=== PATIENT | female | born 1985 | race Caucasian/White ===

== ENCOUNTER → 2017-03-02 | Outpatient (CLI) | payer OTHER ==
[2017-03-02 13:01] LABS: Basophils % (A) 1 %; CH 30.7; CHCM 33.6; Eosinophils # (A) 0.1 k/uL (0-0.7); Eosinophils % (A) 1 %; HCT 39.8 % (34.0-46.0); HDW 2.23; HGB 13.4 gm/dL (11.4-16.0); Luc # (Auto) 0.12; Luc % (Auto) 2; Lymphocytes # (A) 1.3 k/uL (1.0-4.8); Lymphocytes % (A) 18 %; MCH 30.8 pg (25.0-35.0); MCHC 33.6 g/dL (31.0-37.0); MCV 91.7 fL (80.0-100.0); Monocytes # (A) 0.5 k/uL (0-1.0); Monocytes % (A) 7 %; Neutrophils # (A) 5.2 k/uL (1.3-7.7); Neutrophils % (A) 73 %; RBC 4.34 m/uL (3.80-5.40); WBC 7.2 k/uL (3.8-10.6); WBC (Perox) 7.83
== END | disposition home or self-care (01) ==
LOC: LABWHC1 12:21
PROVIDERS: ATTEND Obstetrics & Gynecology
DX: Z01.818 Encounter for other preprocedural examination (principal)
CPT/HCPCS: 36415; 85025

== ENCOUNTER → 2017-03-02 | Outpatient (CLI) | payer OTHER ==
--- NOTE | 2017-03-02 08:26 | US ---
EXAMINATION TYPE: US pelvic complete DATE OF EXAM: 03/02/2017 COMPARISON: NONE CLINICAL HISTORY: 32-year-old female Pelvic Pain R10.2 IUD Z97.5, N92.0 Menorrhagia. Pt states pelvic pain, check IUD placement TECHNIQUE: Multiple transabdominal sonographic images of the pelvis are obtained. Transvaginal scanni ng was medically necessary to better evaluate the anatomy. FINDINGS: Uterus: Anteverted measuring 10.4 x 4.0 x 5.9 cm. An IUD is present but has migrated and is malposit ioned. It is located along the lower uterine segment directed posteriorly and to the right with perfo ration of the myometrium. The tip of the IUD extends up to or just beyond the serosal surface of the uterus. Endometrial Stripe: 0.6 cm Right Ovary: 4.3 x 2.4 x 2.7 cm with a 1.8 cm hemorrhagic follicle or corpus luteum. Left Ovary: 2.4 x 2.1 x 1.2 cm, within normal limits. No evident adnexal abnormality or cul-de-sac free fluid. Findings called to the physician's office by the blueprinting machine operator. IMPRESSION: 1. IUD migration with myometrial perforation. The IUD is malpositioned along the lower uterine segmen t directed posteriorly and to the right. The tip of the IUD extends up to or just beyond the serosal surface of the uterus. 2. A 1.8 cm hemorrhagic follicle or corpus luteum in the right ovary. 3. No pelvic free fluid.
== END | disposition home or self-care (01) ==
LOC: RADUSWWP 07:40
PROVIDERS: ATTEND Obstetrics & Gynecology
DX: T83.128A Displacement of other urinary devices and implants, initial encounter (principal)
CPT/HCPCS: 36415; 76830; 76856; 85025

== ENCOUNTER 2020-01-15 20:36 | Observation (INO) | payer OTHER ==
[2020-01-15] MEDS ORDERED: SODIUM CHLORIDE 0.9% 500 ML 500 ML IV STA (20:58)
[2020-01-15 21:13] LABS: Basophils % (A) 0 %; Eosinophils # (A) 0.1 k/uL (0-0.7); Eosinophils % (A) 2 %; HGB 12.4 gm/dL (11.4-16.0); Lymphocytes # (A) 1.2 k/uL (1.0-4.8); Lymphocytes % (A) 18 %; MCH 32.4 pg (25.0-35.0); MCHC 33.5 g/dL (31.0-37.0); MCV 96.7 fL (80.0-100.0); Mean Platelet Volume 7.6; Monocytes # (A) 0.5 k/uL (0-1.0); Monocytes % (A) 7 %; Neutrophils % (A) 72 %; Platelet Count 256 k/uL (150-450); RBC 3.82 m/uL (3.80-5.40); WBC 6.9 k/uL (3.8-10.6)
--- NOTE | 2020-01-15 21:25 | XR ---
EXAMINATION TYPE: XR chest 1V DATE OF EXAM: 01/15/2020 COMPARISON: NONE HISTORY: Right upper quadrant pain into chest. TECHNIQUE: Single frontal view of the chest is obtained. FINDINGS: There is no focal air space opacity, pleural effusion, or pneumothorax seen. The cardiac silhouette size is within normal limits. The osseous structures are intact. IMPRESSION: No acute process.
[2020-01-15 21:29] LABS: ALT 12 U/L (4-34); AST 23 U/L (14-36); African American GFR (CKD) >90 (>60 ml/min/1.73 sqM); Albumin 3.9 g/dL (3.5-5.0); Alkaline Phosphatase 48 U/L (38-126); Amylase 40 U/L (30-110); Anion Gap 8 mmol/L; Blood Urea Nitrogen 11 mg/dL (7-17); Calcium 9.2 mg/dL (8.4-10.2); Carbon Dioxide 20 mmol/L (22-30); Chloride 105 mmol/L (98-107); Glucose 171 mg/dL (74-99); Lipase 60 U/L (23-300); Non-African American GFR(CKD) 89 (>60 ml/min/1.73 sqM); Potassium 3.5 mmol/L (3.5-5.1); Sodium 133 mmol/L (137-145); Total Bilirubin 1.5 mg/dL (0.2-1.3); Total Protein 6.6 g/dL (6.3-8.2)
[2020-01-15 21:39] LABS: Prothrombin Time 10.5 sec (9.0-12.0)
[2020-01-15 21:43] LABS: Partial Thromboplastin Time 20.9 sec (22.0-30.0)
--- NOTE | 2020-01-15 22:02 | US ---
EXAMINATION TYPE: US pelvic complete DATE OF EXAM: 01/15/2020 COMPARISON: Pelvic ultrasound March 02, 2017 CLINICAL HISTORY: RLQ pain. PELVIC/ABD pain TECHNIQUE: Transabdominal (TA). Transabdominal sonographic images of the pelvis were acquired. TV attempted, however not able to visualize uterus or ovaries EXAM MEASUREMENTS: Uterus: 10.9 x 4.1 x 3.8 cm Endometrial Stripe: 0.7 cm Left Ovary: 2.6 x 1.9 x 3.1 cm 1. Uterus: Anteverted wnl 2. Endometrium: wnl 4. Left Ovary: wnl, follicles Spectral, color and waveform doppler imaging shows good arterial and venous flow within the left ov conor; within the posterior cul de-sac and extending into right adnexa there is a large, complex collectio n= 13.5 x 6.2 x 13.3 cm ?blood/ unable to visualize right ovaryheterogeneous anteverted uterus. End ometrium 7 mm in thickness. Complex material in the pelvic cul-de-sac with possible vascularity. IMPRESSION: Complex large lesion filling the pelvic cul-de-sac could reflect right ovarian mass or ne oplasm. CT correlation is advised to better evaluate and characterize.
[2020-01-15] MEDS ORDERED: MORPHINE SULFATE 2 MG/ML SYRINGE IVP STA (23:04)
--- NOTE | 2020-01-15 23:10 | CT ---
EXAMINATION TYPE: CT abdomen pelvis w con DATE OF EXAM: 01/15/2020 COMPARISON: None HISTORY: RLQ pain CT DLP: 612.8 mGycm Automated exposure control for dose reduction was used. CONTRAST: Performed with IV Contrast, patient injected with 100 mL of Isovue 300. Lung bases are clear. There is no pleural effusion. Heart size is normal. There is no pericardial eff usion. Liver spleen pancreas appear intact. Bile ducts are not dilated. Gallbladder appears normal. There is abdominal ascites. Stomach has normal size and contour. There is no adrenal mass. Kidneys show satisfactory contrast opacification. There is no hydronephrosi s. Delayed images show normal renal excretion. There is no retroperitoneal adenopathy. Uterus is anteverted. Bladder distends smoothly. There is large pelvic mass displacing the uterus ant eriorly. This extends from the floor the pelvis superiorly to the L4-5 disc. The mass measures 13 x 9 x 8 cm and has mixed attenuation. There is no mesenteric edema. There is no sign of a bowel obstruction. There is no evidence of free a ir. Lumbar spine is intact. Bony pelvis is intact. Hip joints appear normal. I see no bony destructiv e process. Appendix is not identified. IMPRESSION: Large mixed attenuation pelvic mass could BE tumor of ovarian origin. There is also abdominal ascites . Also consider tubo-ovarian abscess or endometriosis. Ruptured appendicitis with pelvic phlegmon is in the differential diagnosis. Follow-up recommended. Ascites fluid has density of 26 which is probab ly not hemorrhagic.
[2020-01-15] MEDS ORDERED: SODIUM CHLORIDE 0.9% 1,000 ML IV ONE (23:24)
[2020-01-15] MEDS ORDERED: MORPHINE SULFATE 4 MG/ML SYRINGE IV PRN (23:37)
[2020-01-15] MEDS ORDERED: ONDANSETRON 4 MG/2 ML VIAL IVP PRN (23:37)
[2020-01-15] MEDS ORDERED: NALOXONE 0.4 MG/ML 1 ML VIAL IV PRN (23:37)
--- NOTE | 2020-01-15 23:48 | ED ---
Abdominal Pain HPI - General Source: patient, EMS Mode of arrival: EMS <Ijeoma Thomas - Last Filed: 01/15/20 23:48> <Kaleigh Lopez - Last Filed: 01/15/20 23:55> - General Chief Complaint: Abdominal Pain Stated Complaint: Abdominal Pain Time Seen by Provider: 01/15/20 20:41 - History of Present Illness Initial Comments: 34-year-old male presenting for syncopal episode abdominal pain. Patient states that she has had right upper quadrant abdominal pain today after having sex at noon she denies any vaginal bleeding discharge. She states an hour later she got up to use the restroom and passed out, the episode was witnessed by her who states that the patient lowered herself to the ground and did nto appear to hit her head. Pt denies headache, nasuea, visual changes. She denies vomiting she denies . Patient states she has had some similar pain in the right lower quadrant after sex the past. Patient states that she does have family history of ovarian cancer. Patient denies any chest pain shortness of breath but states that she feels that the pain is climbing up towards her right shoulder. Patient states she has had a previous appendectomy she denies any fevers. Patient denies knonw history of ovarian cysts. Patient on arrival no acute distress. (Ijeoma Thomas) - Related Data Home Medications Medication Instructions Recorded Confirmed Fish Oil/Dha/Epa [Fish Oil 1,200 1 each PO DAILY 12/03/15 03/05/17 mg Fish Oil] Multivitamins, Thera [Multivitamin 1 tab PO DAILY 03/03/17 03/05/17 (formulary)] Previous Rx's Medication Instructions Recorded Ibuprofen [Motrin] 600 mg PO Q6HR PRN #30 tab 03/05/17 Allergies Allergy/AdvReac Type Severity Reaction Status Date / Time No Known Allergies Allergy Verified 01/15/20 20:46 Review of Systems ROS Other: All systems not noted in ROS Statement are negative. <Ijeoma Thomas - Last Filed: 01/15/20 23:48> ROS Other: All systems not noted in ROS Statement are negative. <Kaleigh Lopez - Last Filed: 01/15/20 23:55> ROS Statement: Those systems with pertinent positive or pertinent negative responses have been documented in the HPI. Past Medical History Past Medical History: No Reported History Additional Past Medical History / Comment(s): STATES HAVING IUD REMOVED - HAVING CONTINUOUS VAGINAL BLEEDING. History of Any Multi-Drug Resistant Organisms: None Reported Past Surgical History: Appendectomy Past Anesthesia/Blood Transfusion Reactions: No Reported Reaction, Motion Sickness Past Psychological History: No Psychological Hx Reported Smoking Status: Never smoker Past Alcohol Use History: Occasional Past Drug Use History: None Reported - Past Family History Mother Family Medical History: Hypertension <MarthaIjeoma Ch - Last Filed: 01/15/20 23:48> General Exam <Ijeoma Thomas - Last Filed: 01/15/20 23:48> - General Exam Comments Initial Comments: General: The patient is awake and alert, in no distress Eye: Pupils are equal, round and reactive to light, extra-ocular movements are intact. No nystagmus. There is normal conjunctiva bilaterally. No signs of icterus. Ears, nose, mouth and throat: There are moist mucous membranes and no oral lesions. Neck: The neck is supple, there is no tenderness or JVD. Cardiovascular: There is a regular rate and rhythm. No murmur, rub or gallop is appreciated. Respiratory: Lungs are clear to auscultation, respirations are non-labored, breath sounds are equal. No wheezes, stridor, rales, or rhonchi. Gastrointestinal: Soft, non-distended, RLQ pain without masses or organomegaly noted. There is no rebound or guarding present. Musculoskeletal: Normal ROM, no tenderness. Strength 5/5. Sensation intact. radial pulses equal bilaterally 2+. Neurological: A&O x 3. CN II-XII intact, There are no obvious motor or sensory deficits. Coordination appears grossly intact. Speech is normal. Skin: Skin is warm and dry and no rashes or lesions are noted. Psychiatric: Cooperative, appropriate mood & affect, normal judgment. (Ijeoma Thomas) Course Vital Signs 01/15/20 01/15/20 01/15/20 20:41 22:00 22:40 Temperature 98.2 F Pulse Rate 98 96 94 Respiratory 18 14 16 Rate Blood Pressure 106/80 105/76 105/69 O2 Sat by Pulse 100 100 100 Oximetry Medical Decision Making - Lab Data Result diagrams: 01/15/20 21:03 01/15/20 21:03 <Ijeoma Thomas - Last Filed: 01/15/20 23:48> - Lab Data Result diagrams: 01/15/20 21:03 01/15/20 21:03 <Kaleigh Lopez - Last Filed: 01/15/20 23:55> - Medical Decision Making US concerning for mass. Pt has a syncopal episode in xr. no acute ekg changes. Hgb stable. Mass on CT, very large, concerning for ovarian carcinoma. pt in monogamous relationship, no concern for STI. No fevers. Patietn has no leukocytosis. + family history of ovarian cancer. Patient pain uncontrolled in the ER will admit for pain control, telemetry. Patient agreeable to admission. Dr Olivas agreeable to admission for pain control. Dr Lopez agreeable to care plan. (Ijeoma Thomas) I personally saw and evaluated the a jacobs, patient reports feeling lightheaded anytime she attempts to stand doesn't feel she has the strength to go home. Patient also very upset over diagnosis. Patient care was discussed with her special education professor Dr. Olivas who agrees with plan for observation for pain management and to expedite planning. (Kaleigh Lopez) - Lab Data Lab Results 01/15/20 01/15/20 01/15/20 Range/Units 21:03 21:03 21:03 WBC 6.9 (3.8-10.6) k/uL RBC 3.82 (3.80-5.40) m/uL Hgb 12.4 (11.4-16.0) gm/dL Hct 37.0 (34.0-46.0) % MCV 96.7 (80.0-100.0) fL MCH 32.4 (25.0-35.0) pg MCHC 33.5 (31.0-37.0) g/dL RDW 12.0 (11.5-15.5) % Plt Count 256 (150-450) k/uL Neutrophils % 72 % Lymphocytes % 18 % Monocytes % 7 % Eosinophils % 2 % Basophils % 0 % Neutrophils # 5.0 (1.3-7.7) k/uL Lymphocytes # 1.2 (1.0-4.8) k/uL Monocytes # 0.5 (0-1.0) k/uL Eosinophils # 0.1 (0-0.7) k/uL Basophils # 0.0 (0-0.2) k/uL PT 10.5 (9.0-12.0) sec INR 1.0 (<1.2) APTT 20.9 L (22.0-30.0) sec Sodium 133 L (137-145) mmol/L Potassium 3.5 (3.5-5.1) mmol/L Chloride 105 (98-107) mmol/L Carbon Dioxide 20 L (22-30) mmol/L Anion Gap 8 mmol/L BUN 11 (7-17) mg/dL Creatinine 0.87 (0.52-1.04) mg/dL Est GFR (CKD-EPI)AfAm >90 (>60 ml/min/1.73 sqM) Est GFR (CKD-EPI)NonAf 89 (>60 ml/min/1.73 sqM) Glucose 171 H (74-99) mg/dL Calcium 9.2 (8.4-10.2) mg/dL Total Bilirubin 1.5 H (0.2-1.3) mg/dL AST 23 (14-36) U/L ALT 12 (4-34) U/L Alkaline Phosphatase 48 (38-126) U/L Troponin I (0.000-0.034) ng/mL Total Protein 6.6 (6.3-8.2) g/dL Albumin 3.9 (3.5-5.0) g/dL Amylase 40 (30-110) U/L Lipase 60 (23-300) U/L HCG, Qual 01/15/20 01/15/20 Range/Units 21:03 21:03 WBC (3.8-10.6) k/uL RBC (3.80-5.40) m/uL Hgb (11.4-16.0) gm/dL Hct (34.0-46.0) % MCV (80.0-100.0) fL MCH (25.0-35.0) pg MCHC (31.0-37.0) g/dL RDW (11.5-15.5) % Plt Count (150-450) k/uL Neutrophils % % Lymphocytes % % Monocytes % % Eosinophils % % Basophils % % Neutrophils # (1.3-7.7) k/uL Lymphocytes # (1.0-4.8) k/uL Monocytes # (0-1.0) k/uL Eosinophils # (0-0.7) k/uL Basophils # (0-0.2) k/uL PT (9.0-12.0) sec INR (<1.2) APTT (22.0-30.0) sec Sodium (137-145) mmol/L Potassium (3.5-5.1) mmol/L Chloride (98-107) mmol/L Carbon Dioxide (22-30) mmol/L Anion Gap mmol/L BUN (7-17) mg/dL Creatinine (0.52-1.04) mg/dL Est GFR (CKD-EPI)AfAm (>60 ml/min/1.73 sqM) Est GFR (CKD-EPI)NonAf (>60 ml/min/1.73 sqM) Glucose (74-99) mg/dL Calcium (8.4-10.2) mg/dL Total Bilirubin (0.2-1.3) mg/dL AST (14-36) U/L ALT (4-34) U/L Alkaline Phosphatase (38-126) U/L Troponin I <0.012 (0.000-0.034) ng/mL Total Protein (6.3-8.2) g/dL Albumin (3.5-5.0) g/dL Amylase (30-110) U/L Lipase (23-300) U/L HCG, Qual Not Detected Disposition Is patient prescribed a controlled substance at d/c from ED?: No Time of Disposition: 23:47 Decision to Admit Reason: Admit from EC Decision Date: 01/15/20 Decision Time: 23:47 <Ijeoma Thomas L - Last Filed: 01/15/20 23:48> <Kaleigh Lopez P - Last Filed: 01/15/20 23:55> Clinical Impression: Ovarian mass, Right lower quadrant pain, Syncope Disposition: ADMITTED IP TO THIS [facility] Condition: Stable Referrals: None,Stated [Primary Care Provider] - 1-2 days
[2020-01-16] MEDS: 0.9% NACL WITH KCL 20 MEQ/L 1,000 ML IV SCH ×2 (01:10→13:38)
[2020-01-16] MEDS: HYDROmorphone 0.5 MG/0.5 ML SYRINGE IVP PRN ×5 (01:19→23:11)
[2020-01-16 07:36] LABS: Appearance,Urine Clear (Clear); Bilirubin,Urine Negative (Negative); Blood,Urine Negative (Negative); Color,Urine Yellow; Glucose,Urine (UA) Negative (Negative); Ketones,Urine 2+ (Negative); Leukocyte Esterase,Urine Negative (Negative); Nitrite,Urine Negative (Negative); PH, Urine 6.5 (5.0-8.0); Protein,Urine Trace (Negative); Urobilinogen,Urine <2.0 mg/dL (<2.0)
[2020-01-16 07:38] LABS: Specific Gravity,Urine >1.050 (1.001-1.035)
[2020-01-16 11:53] LABS: Cancer Antigen 19-9 1.3 U/mL (0.0-34.9)
[2020-01-16 12:01] LABS: Carcinoembryonic Antigen <0.5 ng/mL (0.0-4.9)
--- NOTE | 2020-01-16 12:30 | P.HPOB ---
History of Present Illness H&P Date: 01/16/20 Chief Complaint: Ovarian mass Kim is a very pleasant 35-year-old female well known to me from previous office visits. She presents last night for syncopal/near-syncopal episode. She relates that yesterday afternoon at around noon she was having sex with her and following sex she got up to go in the shower and she had a severe right lower quadrant pain symptoms and caused her to basically pass out in the shower. She waited at home until approximately 8 PM when the pain did not get any better and she began feeling tired and weak she was brought to the emergency room. In the emergency room a CAT scan and ultrasound were done showing a globular of bleed within the mass. It is difficult to differentiate within the mass ovary versus mass effect. There is also ascites but again they do not believe is blood that they believe his ascites fluid. In seeing her this morning, her pain is still relatively significant and she is receiving IV Dilaudid for pain. When I saw her she was laying in bed and relates that she cannot really sit up or stand up due to how significant the pain is and that she has not been able to understand up for a number of hours. She does have a history of IUD perforation and removal surgically. She has history of prior appendectomy. Her family history is significant for ovarian cancer including her maternal grandmother. Based on the unusual findings and significant size of this mass and history of ovarian cancer within the family, her trauma grandmother actually at approximately 25 or 26 years of age from ovarian cancer, we are planning to transfer [facility] for surgical intervention. I had a lengthy discussion with the patient and her mother regarding plan and options. I did speak with Dr. Arlin cordova about the transfer. We discussed the possibility if this is ovarian cancer, her CA-125 level was normal which at least reduces that risk somewhat. The CT also showed no lymphadenopathy that they could tell there was also no omental caking or areas on the chest that I represent metastases. Certainly other possible diagnoses to include borderline tumors, endometriosis, infection, or even potentially ruptured hemorrhagic cyst but this based on what radiology is telling me is much less likely. On physical exam her vital signs currently are stable with a blood pressure 100/60 and a pulse of 93. Her heart is regular, lungs are clear, extremities without pain. Abdomen is soft with significant tenderness in the right lower quadrant and mild rebound but no other peritoneal signs. She declined pelvic exam at this time with plans for transfer Assessment suspected right ovarian mass Plan transfer to [facility] for surgical evaluation Past Medical History Past Medical History: No Reported History Additional Past Medical History / Comment(s): Gluten free diet. History of Any Multi-Drug Resistant Organisms: None Reported Past Surgical History: Appendectomy Additional Past Surgical History / Comment(s): IUD removed, bilateral lasik eye surgery Past Anesthesia/Blood Transfusion Reactions: No Reported Reaction, Motion Sickness Smoking Status: Never smoker - Past Family History Mother Family Medical History: Hypertension Father Family Medical History: No Reported History Medications and Allergies Home Medications Medication Instructions Recorded Confirmed Type No Known Home Medications 01/16/20 01/16/20 History Allergies Allergy/AdvReac Type Severity Reaction Status Date / Time gluten Allergy Nausea & Verified 01/16/20 07:03 Vomiting & Diarrhea Exam Osteopathic Statement: *. No significant issues noted on an osteopathic structural exam other than those noted in the History and Physical/Consult. Vital Signs Temp Pulse Pulse Resp BP BP Pulse Ox 01/16/20 12:00 98.9 F 83 14 100/63 99 01/16/20 11:16 98.1 F 82 18 105/70 100 01/16/20 06:56 98.4 F 88 16 105/62 98 01/16/20 05:10 98.6 F 90 16 100/61 98 01/16/20 01:00 89 16 99/69 98 01/16/20 00:00 92 16 108/71 100 01/15/20 23:00 87 16 106/70 100 01/15/20 22:40 94 16 105/69 100 01/15/20 22:00 96 14 105/76 100 01/15/20 20:41 98.2 F 98 18 106/80 100 Intake and Output 01/15/20 01/16/20 01/16/20 22:59 06:59 14:59 Output Total 391 Balance -391 Output: Post Void Residual 391 Other: Weight 52.163 kg 52.163 kg Results Result Diagrams: 01/15/20 21:03 01/15/20 21:03 Abnormal Lab Results - Last 24 Hours (Table) 01/15/20 01/15/20 01/16/20 Range/Units 21:03 21:03 07:04 APTT 20.9 L (22.0-30.0) sec Sodium 133 L (137-145) mmol/L Carbon Dioxide 20 L (22-30) mmol/L Glucose 171 H (74-99) mg/dL Total Bilirubin 1.5 H (0.2-1.3) mg/dL Ur Specific [place] >1.050 H (1.001-1.035) Urine Protein Trace H (Negative) Urine Ketones 2+ H (Negative)
[2020-01-16 12:54] LABS: Basophils % (A) 0 %; Eosinophils % (A) 1 %; HCT 26.9 % (34.0-46.0); Lymphocytes # (A) 0.9 k/uL (1.0-4.8); Lymphocytes % (A) 16 %; MCH 32.8 pg (25.0-35.0); MCHC 33.2 g/dL (31.0-37.0); Mean Platelet Volume 7.8; Monocytes # (A) 0.4 k/uL (0-1.0); Monocytes % (A) 7 %; Neutrophils # (A) 4.2 k/uL (1.3-7.7); Neutrophils % (A) 76 %; Platelet Count 197 k/uL (150-450); RBC 2.72 m/uL (3.80-5.40); RDW 12.4 % (11.5-15.5); WBC 5.5 k/uL (3.8-10.6)
[2020-01-16 13:05] LABS: HGB 8.9 gm/dL (11.4-16.0)
[2020-01-17] MEDS: 0.9% NACL WITH KCL 20 MEQ/L 1,000 ML IV SCH (02:46)
[2020-01-17 02:49] VITALS: PULSE 85
[2020-01-17] MEDS: HYDROmorphone 0.5 MG/0.5 ML SYRINGE IVP PRN ×2 (06:05→09:28)
[2020-01-17 07:57] VITALS: BP 89/55; RESP 14; TEMP 97.6
[2020-01-17 08:19] LABS: Basophils % (A) 0 %; Eosinophils # (A) 0.1 k/uL (0-0.7); Eosinophils % (A) 2 %; HCT 23.9 % (34.0-46.0); Lymphocytes # (A) 0.9 k/uL (1.0-4.8); Lymphocytes % (A) 22 %; MCH 33.2 pg (25.0-35.0); MCHC 33.3 g/dL (31.0-37.0); MCV 99.5 fL (80.0-100.0); Mean Platelet Volume 7.7; Monocytes # (A) 0.3 k/uL (0-1.0); Monocytes % (A) 7 %; Neutrophils # (A) 2.8 k/uL (1.3-7.7); Neutrophils % (A) 67 %; Platelet Count 188 k/uL (150-450); RDW 12.1 % (11.5-15.5); WBC 4.2 k/uL (3.8-10.6)
== END 2020-01-17 09:45 | disposition left against medical advice (07) ==
LOC: EC 20:36 → 1SOBS 23:59
PROVIDERS: ADMIT Obstetrics & Gynecology; ATTEND Obstetrics & Gynecology
DX: R10.31 Right lower quadrant pain (principal); R18.8 Other ascites; R55 Syncope and collapse; N83.9 Noninflammatory disorder of ovary, fallopian tube and broad ligament, unspecified; Z80.41 Family history of malignant neoplasm of ovary; Z90.49 Acquired absence of other specified parts of digestive tract; Z82.49 Family history of ischemic heart disease and other diseases of the circulatory system
CPT/HCPCS: 96365; 96366 ×2; 96376 ×3; 96361; 96375 ×2; 99285; 51798; 36415; 93005; 80053; 86304; 82378; 82150; 83690; 84484; 85025 ×3; 85610; 85730; 81003; 84703; 83520; 86301; 71045; 93976; 76856; 74177; G0378 ×2; J2270; J1170 ×2; Q9967; 86336

== ENCOUNTER 2021-05-06 19:11 | Emergency (ER) | payer OTHER ==
[2021-05-06 19:50] VITALS: BP 114/79; PULSE 94; RESP 20; TEMP 97.4
[2021-05-06 20:25] LABS: Appearance,Urine Cloudy (Clear); Bacteria,Urine Occasional /hpf; Bilirubin,Urine Negative (Negative); Blood,Urine Moderate (Negative); Color,Urine Yellow; Glucose,Urine (UA) Negative (Negative); Ketones,Urine Negative (Negative); Leukocyte Esterase,Urine Negative (Negative); Mucus,Urine Moderate /hpf; Nitrite,Urine Negative (Negative); Protein,Urine Trace (Negative); RBC,Urine 3 /hpf (0-5); Specific Gravity,Urine 1.023 (1.001-1.035); Squamous Epithelial Cell,Urine 5 /hpf (0-4); Urobilinogen,Urine <2.0 mg/dL (<2.0); WBC,Urine 1 /hpf (0-5)
[2021-05-06] MEDS ORDERED: SODIUM CHLORIDE 0.9% 1,000 ML IV STA (20:59)
[2021-05-06] MEDS ORDERED: KETOROLAC 15 MG/ML 1 ML VIAL IVP STA (20:59)
--- NOTE | 2021-05-06 21:03 | ED ---
General Adult HPI - General Chief complaint: Abdominal Pain Stated complaint: abd pain Time Seen by Provider: 05/06/21 20:55 Source: patient, RN notes reviewed, old records reviewed Mode of arrival: ambulatory Limitations: no limitations - History of Present Illness Initial comments: Well-appearing 36-year-old female, alert and oriented 4, presents to emergency room with complaints of diffuse abdominal pain. Patient states that she had intercourse with her Thursday night and developed right lower quadrant pain. She states that she woke up Thursday and she has diffuse abdominal pain and distention. She states that this happened before when she had a uterine mass that ruptured after sexual intercourse and this feels similar. She denies any fevers, no nausea vomiting or diarrhea. She is pain as constant 7 out of 10. She does have a history of appendectomy. -: days(s) (4) Location: abdomen Severity scale (1-10): 7 Quality: constant Consistency: constant Improves with: none Worsens with: movement, other (palpation) Associated Symptoms: denies other symptoms Treatments Prior to Arrival: none - Related Data Home Medications Medication Instructions Recorded Confirmed Ascorbic Acid/Collagen Hydr 1 cap PO DAILY 05/06/21 05/06/21 [Collagen Plus Vit C Capsule] Cholecalciferol [Vitamin D3 (25 25 mcg PO DAILY 05/06/21 05/06/21 Mcg = 1000 Iu)] L.acidoph,Paracasei, B.lactis 1 cap PO DAILY 05/06/21 05/06/21 [Probiotic] Multivitamins, Thera [Multivitamin 1 tab PO DAILY 05/06/21 05/06/21 (formulary)] [place]-3 Fatty Acids/Fish Oil [Fish 1 cap PO DAILY 05/06/21 05/06/21 Oil 1,000 mg Softgel] Allergies Allergy/AdvReac Type Severity Reaction Status Date / Time gluten Allergy Nausea & Verified 05/06/21 21:38 Vomiting & Diarrhea Review of Systems ROS Statement: Those systems with pertinent positive or pertinent negative responses have been documented in the HPI. ROS Other: All systems not noted in ROS Statement are negative. Past Medical History Past Medical History: No Reported History Additional Past Medical History / Comment(s): Gluten free diet. History of Any Multi-Drug Resistant Organisms: None Reported Past Surgical History: Appendectomy Additional Past Surgical History / Comment(s): IUD removed, bilateral lasik eye surgery, abdominal mass Past Anesthesia/Blood Transfusion Reactions: No Reported Reaction, Motion Sickness Past Psychological History: No Psychological Hx Reported Smoking Status: Never smoker Past Alcohol Use History: Occasional Past Drug Use History: None Reported - Past Family History Mother Family Medical History: Hypertension Father Family Medical History: No Reported History General Exam Limitations: no limitations General appearance: alert, in no apparent distress Head exam: Present: atraumatic, normocephalic, normal inspection Eye exam: Present: normal appearance Neck exam: Present: normal inspection. Absent: tenderness, meningismus Respiratory exam: Present: normal lung sounds bilaterally. Absent: accessory muscle use, decreased breath sounds Cardiovascular Exam: Present: regular rate, normal rhythm, normal heart sounds GI/Abdominal exam: Present: soft, distended, tenderness ( diffusely tender). Absent: rigid, mass Extremities exam: Present: normal inspection, full ROM, normal capillary refill. Absent: tenderness, pedal edema, joint swelling, calf tenderness Back exam: Present: normal inspection, full ROM. Absent: tenderness, CVA tenderness (R), CVA tenderness (L), rash noted Neurological exam: Present: alert, oriented X3 Psychiatric exam: Present: normal affect, normal mood Skin exam: Present: warm, dry, intact, normal color. Absent: cyanosis, diaphoretic, petechiae, pallor Course Vital Signs 05/06/21 19:46 Temperature 97.4 F L Pulse Rate 94 Respiratory 20 Rate Blood Pressure 114/79 O2 Sat by Pulse 100 Oximetry Medical Decision Making - Medical Decision Making 36-year-old female presents to the emergency room with right lower quadrant pain since Thursday that is progressively become more diffuse. She has a history of appendectomy and excision of a benign uterine mass. CT abdomen shows a left ovarian cyst with an elongated hyperattenuation in the pelvis could be acute hemorrhage. Hemoglobin and hematocrit are stable. There is no evidence of leukocytosis. Urinalysis shows moderate amount of blood, no evidence of urinary tract infection or . Patient denies any vaginal bleeding. This is likely a ruptured hemorrhagic ovarian cyst causing her pain. Vital signs are stable. She'll be referred to follow up with her TANK WORKER next week and return to the emergency room with any new or concerning symptoms including increased pain. Tylenol and/or Motrin as needed for pain and given take home dose of Tylenol #3's at discharge. Patient is agreeable to this plan of care. Case was discussed with Dr. Lopez. - Lab Data Result diagrams: 05/06/21 21:28 05/06/21 21:28 Lab Results 05/06/21 05/06/21 05/06/21 Range/Units 19:55 19:55 21:28 WBC 4.5 (3.8-10.6) k/uL RBC 3.06 L (3.80-5.40) m/uL Hgb 10.4 L (11.4-16.0) gm/dL Hct 29.3 L (34.0-46.0) % MCV 95.8 (80.0-100.0) fL MCH 33.8 (25.0-35.0) pg MCHC 35.3 (31.0-37.0) g/dL RDW 12.1 (11.5-15.5) % Plt Count 237 (150-450) k/uL MPV 8.3 Neutrophils % 63 % Lymphocytes % 24 % Monocytes % 8 % Eosinophils % 4 % Basophils % 1 % Neutrophils # 2.8 (1.3-7.7) k/uL Lymphocytes # 1.1 (1.0-4.8) k/uL Monocytes # 0.3 (0-1.0) k/uL Eosinophils # 0.2 (0-0.7) k/uL Basophils # 0.0 (0-0.2) k/uL PT (9.0-12.0) sec INR (<1.2) APTT (22.0-30.0) sec Sodium (137-145) mmol/L Potassium (3.5-5.1) mmol/L Chloride (98-107) mmol/L Carbon Dioxide (22-30) mmol/L Anion Gap mmol/L BUN (7-17) mg/dL Creatinine (0.52-1.04) mg/dL Est GFR (CKD-EPI)AfAm (>60 ml/min/1.73 sqM) Est GFR (CKD-EPI)NonAf (>60 ml/min/1.73 sqM) Glucose (74-99) mg/dL Plasma Lactic Acid Duy (0.7-2.0) mmol/L Calcium (8.4-10.2) mg/dL Total Bilirubin (0.2-1.3) mg/dL AST (14-36) U/L ALT (4-34) U/L Alkaline Phosphatase (38-126) U/L Total Protein (6.3-8.2) g/dL Albumin (3.5-5.0) g/dL Amylase (30-110) U/L Lipase (23-300) U/L Urine Color Yellow Urine Appearance Cloudy H (Clear) Urine pH 6.0 (5.0-8.0) Ur Specific [place] 1.023 (1.001-1.035) Urine Protein Trace H (Negative) Urine Glucose (UA) Negative (Negative) Urine Ketones Negative (Negative) Urine Blood Moderate H (Negative) Urine Nitrite Negative (Negative) Urine Bilirubin Negative (Negative) Urine Urobilinogen <2.0 (<2.0) mg/dL Ur Leukocyte Esterase Negative (Negative) Urine RBC 3 (0-5) /hpf Urine WBC 1 (0-5) /hpf Ur Squamous Epith Cells 5 H (0-4) /hpf Urine Bacteria Occasional H (None) /hpf Urine Mucus Moderate H (None) /hpf Urine HCG, Qual Not Detected (Not Detectd) 05/06/21 05/06/21 05/06/21 Range/Units 21:28 21:28 21:28 WBC (3.8-10.6) k/uL RBC (3.80-5.40) m/uL Hgb (11.4-16.0) gm/dL Hct (34.0-46.0) % MCV (80.0-100.0) fL MCH (25.0-35.0) pg MCHC (31.0-37.0) g/dL RDW (11.5-15.5) % Plt Count (150-450) k/uL MPV Neutrophils % % Lymphocytes % % Monocytes % % Eosinophils % % Basophils % % Neutrophils # (1.3-7.7) k/uL Lymphocytes # (1.0-4.8) k/uL Monocytes # (0-1.0) k/uL Eosinophils # (0-0.7) k/uL Basophils # (0-0.2) k/uL PT 10.1 (9.0-12.0) sec INR 0.9 (<1.2) APTT 23.7 (22.0-30.0) sec Sodium 136 L (137-145) mmol/L Potassium 3.9 (3.5-5.1) mmol/L Chloride 109 H (98-107) mmol/L Carbon Dioxide 23 (22-30) mmol/L Anion Gap 4 mmol/L BUN 8 (7-17) mg/dL Creatinine 0.62 (0.52-1.04) mg/dL Est GFR (CKD-EPI)AfAm >90 (>60 ml/min/1.73 sqM) Est GFR (CKD-EPI)NonAf >90 (>60 ml/min/1.73 sqM) Glucose 97 (74-99) mg/dL Plasma Lactic Acid Duy 0.8 (0.7-2.0) mmol/L Calcium 8.8 (8.4-10.2) mg/dL Total Bilirubin 0.6 (0.2-1.3) mg/dL AST 18 (14-36) U/L ALT 9 (4-34) U/L Alkaline Phosphatase 45 (38-126) U/L Total Protein 6.4 (6.3-8.2) g/dL Albumin 3.6 (3.5-5.0) g/dL Amylase 46 (30-110) U/L Lipase 93 (23-300) U/L Urine Color Urine Appearance (Clear) Urine pH (5.0-8.0) Ur Specific [place] (1.001-1.035) Urine Protein (Negative) Urine Glucose (UA) (Negative) Urine Ketones (Negative) Urine Blood (Negative) Urine Nitrite (Negative) Urine Bilirubin (Negative) Urine Urobilinogen (<2.0) mg/dL Ur Leukocyte Esterase (Negative) Urine RBC (0-5) /hpf Urine WBC (0-5) /hpf Ur Squamous Epith Cells (0-4) /hpf Urine Bacteria (None) /hpf Urine Mucus (None) /hpf Urine HCG, Qual (Not Detectd) Disposition Clinical Impression: Ruptured cyst of left ovary Disposition: HOME SELF-CARE Condition: Good Instructions (If sedation given, give patient instructions): Ruptured Ovarian Cyst (ED) Additional Instructions: Return to the emergency room with any new or concerning symptoms including increased pain, fevers or dizziness. Follow-up with your TANK WORKER this week for reevaluation. Tylenol and or Motrin as needed for pain. Is patient prescribed a controlled substance at d/c from ED?: No Referrals: None,Stated [Primary Care Provider] - 1-2 days Time of Disposition: 22:41
[2021-05-06 21:48] LABS: Basophils % (A) 1 %; Eosinophils # (A) 0.2 k/uL (0-0.7); Eosinophils % (A) 4 %; HCT 29.3 % (34.0-46.0); HGB 10.4 gm/dL (11.4-16.0); Lymphocytes # (A) 1.1 k/uL (1.0-4.8); Lymphocytes % (A) 24 %; MCH 33.8 pg (25.0-35.0); MCHC 35.3 g/dL (31.0-37.0); MCV 95.8 fL (80.0-100.0); Mean Platelet Volume 8.3; Monocytes # (A) 0.3 k/uL (0-1.0); Monocytes % (A) 8 %; Neutrophils # (A) 2.8 k/uL (1.3-7.7); Neutrophils % (A) 63 %; Platelet Count 237 k/uL (150-450); RBC 3.06 m/uL (3.80-5.40); RDW 12.1 % (11.5-15.5); WBC 4.5 k/uL (3.8-10.6)
[2021-05-06 21:57] LABS: ALT 9 U/L (4-34); AST 18 U/L (14-36); African American GFR (CKD) >90 (>60 ml/min/1.73 sqM); Albumin 3.6 g/dL (3.5-5.0); Alkaline Phosphatase 45 U/L (38-126); Amylase 46 U/L (30-110); Anion Gap 4 mmol/L; Blood Urea Nitrogen 8 mg/dL (7-17); Calcium 8.8 mg/dL (8.4-10.2); Carbon Dioxide 23 mmol/L (22-30); Chloride 109 mmol/L (98-107); Glucose 97 mg/dL (74-99); Lipase 93 U/L (23-300); Non-African American GFR(CKD) >90 (>60 ml/min/1.73 sqM); Potassium 3.9 mmol/L (3.5-5.1); Sodium 136 mmol/L (137-145); Total Bilirubin 0.6 mg/dL (0.2-1.3); Total Protein 6.4 g/dL (6.3-8.2)
[2021-05-06 22:01] LABS: INR 0.9 (<1.2); Partial Thromboplastin Time 23.7 sec (22.0-30.0); Prothrombin Time 10.1 sec (9.0-12.0)
--- NOTE | 2021-05-06 22:27 | CT ---
EXAMINATION TYPE: CT abdomen pelvis w con DATE OF EXAM: 05/06/2021 COMPARISON: 01/15/2020 HISTORY: Abdominal pain. Hx appy and uterine cyst. CT DLP: 610.3 mGycm Automated exposure control for dose reduction was used. CONTRAST: Performed with IV Contrast, patient injected with 100 mL of Isovue 300. The lung bases are clear of consolidation. There is mild subsegmental atelectasis at the lung bases. Heart size is normal. There is no pleural effusion. There is no pericardial effusion. Liver spleen pancreas and gallbladder appear intact. The bile ducts are not dilated. The stomach is intact. There is no adrenal mass. Kidneys show satisfactory contrast opacification. There is no hydronephrosi s. There are clips from appendectomy. The bladder distends smoothly. There is no inguinal hernia. The re is a 4 cm thick wall cyst on the left ovary. Uterus is anteverted. There is elongated area of high attenuation in the cul-de-sac that measures 11 x 3 cm and could be acute hemorrhage. There is no evidence of a bowel obstruction. There is no free air. Lumbar vertebra have normal alignm ent. There is no compression fracture. Bony pelvis appears intact. The hip joints are intact. IMPRESSION: Left ovarian cyst. Elongated high attenuation in the pelvis could be acute hemorrhage. There is clear ing of the large amount of fluid in the paracolic gutters compared to old exam. There is improvement in the abnormal density in the cul-de-sac compared to old exam.
[2021-05-06] MEDS ORDERED: MORPHINE SULFATE 4 MG/ML SYRINGE IVP STA (22:38)
[2021-05-06] MEDS ORDERED: ACET/COD 300 MG/30 MG STARTER PACK 6 TAB BTL PO STA (22:41)
== END 2021-05-06 22:57 | disposition home or self-care (01) ==
LOC: EC 19:11
DX: N83.202 Unspecified ovarian cyst, left side (principal); Z91.018 Allergy to other foods
CPT/HCPCS: 36415; 80053; 82150; 83605; 83690; 85025; 85610; 85730; 81001; 81025; 74177; 99284; 96374; 96375; 96361; J2270; J1885; Q9967

== ENCOUNTER 2023-07-22 02:52 | Emergency (ER) | payer OTHER ==
[2023-07-22 03:12] VITALS: TEMP 98
--- NOTE | 2023-07-22 03:28 | ED ---
Recheck HPI - General Chief Complaint: Recheck/Abnormal Lab/Rx Stated Complaint: left side pain ALEX Time Seen by Provider: 07/22/23 03:13 Source: patient, RN notes reviewed, old records reviewed Mode of arrival: ambulatory Limitations: no limitations - History of Present Illness Initial Comments: This is a 38-year-old female who presents today for evaluation regards to left- sided chest wall pain left-sided anterior chest pain rib pain with history of rib fracture and lung collapse. Patient's pain is severe here in the emergency department patient states went to bed last night without any symptoms and woke up today with severe symptoms MD Complaint: other (Sided chest wall pain) -: hour(s) Returns Today for: persistent/worsening pain related to initial visit Symptoms Since Prior Visit: no new symptoms Context: planned re-check Associated Symptoms: none - Related Data Home Medications Medication Instructions Recorded Confirmed Ascorbic Acid/Collagen Hydr 1 cap PO DAILY 05/06/21 05/06/21 [Collagen Plus Vit C Capsule] Cholecalciferol [Vitamin D3 (25 25 mcg PO DAILY 05/06/21 05/06/21 Mcg = 1000 Iu)] L.acidoph,Paracasei, B.lactis 1 cap PO DAILY 05/06/21 05/06/21 [Probiotic] Multivitamins, Thera [Multivitamin 1 tab PO DAILY 05/06/21 05/06/21 (formulary)] [place]-3 Fatty Acids/Fish Oil [Fish 1 cap PO DAILY 05/06/21 05/06/21 Oil 1,000 mg Softgel] Allergies Allergy/AdvReac Type Severity Reaction Status Date / Time gluten Allergy Nausea & Verified 07/22/23 03:04 Vomiting & Diarrhea Review of Systems ROS Statement: Those systems with pertinent positive or pertinent negative responses have been documented in the HPI. ROS Other: All systems not noted in ROS Statement are negative. Past Medical History Past Medical History: No Reported History Additional Past Medical History / Comment(s): Gluten free diet. History of Any Multi-Drug Resistant Organisms: None Reported Past Surgical History: Appendectomy Additional Past Surgical History / Comment(s): IUD removed, bilateral lasik eye surgery, abdominal mass Past Anesthesia/Blood Transfusion Reactions: No Reported Reaction, Motion Sickness Past Psychological History: No Psychological Hx Reported Smoking Status: Current every day smoker Past Alcohol Use History: Occasional Past Drug Use History: None Reported - Past Family History Mother Family Medical History: Hypertension Father Family Medical History: No Reported History General Exam Limitations: no limitations General appearance: alert, in no apparent distress Head exam: Present: atraumatic, normocephalic, normal inspection Eye exam: Present: normal appearance, PERRL, EOMI. Absent: scleral icterus, conjunctival injection, periorbital swelling ENT exam: Present: normal exam, mucous membranes moist Neck exam: Present: normal inspection. Absent: tenderness, meningismus, lymph adenopathy Respiratory exam: Present: normal lung sounds bilaterally. Absent: respiratory distress, wheezes, rales, rhonchi, stridor Cardiovascular Exam: Present: regular rate, normal rhythm, normal heart sounds. Absent: systolic murmur, diastolic murmur, rubs, gallop, clicks GI/Abdominal exam: Present: soft, normal bowel sounds. Absent: distended, tenderness, guarding, rebound, rigid Extremities exam: Present: normal inspection, full ROM, normal capillary refill. Absent: tenderness, pedal edema, joint swelling, calf tenderness Back exam: Present: normal inspection Neurological exam: Present: alert, oriented X3, CN II-XII intact Psychiatric exam: Present: normal affect, normal mood Skin exam: Present: warm, dry, intact, normal color. Absent: rash Course Vital Signs 07/22/23 07/22/23 07/22/23 03:03 03:07 04:01 Temperature 98 F Pulse Rate 92 84 Respiratory 18 24 22 Rate Blood Pressure 113/82 117/86 O2 Sat by Pulse 99 95 Oximetry 07/22/23 07/22/23 07/22/23 04:06 05:00 06:00 Temperature Pulse Rate 67 81 Respiratory 16 16 20 Rate Blood Pressure 116/76 122/76 O2 Sat by Pulse 99 98 Oximetry - Reevaluation(s) Reevaluation #1: 07/22/23 03:51 Medical records reviewed Reevaluation #2: 07/22/23 03:51 Patient's pain is improved Reevaluation #3: Patient for results and questions answered Reevaluation #4: Was pt. sent in by a medical professional or institution (, PA, LINING CLOSER, urgent care, hospital, or halfway...) When possible be specific @ -no Did you speak to anyone other than the patient for history (EMS, parent, family, police, friend...)? What history was obtained from this source @ -no Did you review nursing and triage notes (agree or disagree)? Why? @ -agree Are old charts reviewed (outside hosp., previous admission, EMS record, old EKG, old radiological studies, urgent care reports/EKG's, halfway records)? Report findings @ -yes Differential Diagnosis (chest pain, altered mental status, abdominal pain women, abdominal pain men, vaginal bleeding, weakness, fever, dyspnea, syncope, headache, dizziness, GI bleed, back pain, seizure, CVA, palpatations, mental health, musculoskeletal)? @ -prior EKG interpreted by me (3pts min.). @ -yes X-rays interpreted by me (1pt min.). @ -yes negative for acute disease CT interpreted by me (1pt min.). @ -no U/S interpreted by me (1pt. min.). @ -no What testing was considered but not performed or refused? (CT, X-rays, U/S, labs)? Why? @ -none What meds were considered but not given or refused? Why? @ -none Did you discuss the management of the patient with other professionals (professionals i.e. , PA, LINING CLOSER, lab, RT, psych nurse, director of social work, airline station agent, teacher, ambulance officer, pillowcase cutter)? Give summary @ -no Was smoking cessation discussed for >3mins.? @ -no Was critical care preformed (if so, how long)? @ -no Were there social determinants of health that impacted care today? How? (Homelessness, low income, unemployed, alcoholism, drug addiction, transportati on, low edu. Level, literacy, decrease access to med. care, assisted, rehab)? @ -none Was there de-escalation of care discussed even if they declined (Discuss DNR or withdrawal of care, Hospice)? DNR status @ -no What co-morbidities impacted this encounter? (DM, HTN, Smoking, COPD, CAD, Cancer, CVA, ARF, Chemo, Hep., AIDS, mental health diagnosis, sleep apnea, morbid obesity)? @ -none Was patient admitted / discharged? Hospital course, mention meds given and route, prescriptions, significant lab abnormalities, going to OR and other pertinent info. @ - 38 female to ER for evaluation of chest pain. Patient has persistent chest pain here in the emergency department that is improved. Patient has no cause of chest pain found can be discharged home Discharge Undiagnosed new problem with uncertain prognosis? @ -no Drug Therapy requiring intensive monitoring for toxicity (Heparin, Nitro, Insu galina, Cardizem)? @ -no Were any procedures done? @ -no Diagnosis/symptom? @ -Chest pain Acute, or Chronic, or Acute on Chronic? @ -Acute Uncomplicated (without systemic symptoms) or Complicated (systemic symptoms)? @ -Complicated Side effects of treatment? @ -no Exacerbation, Progression, or Severe Exacerbation? @ -exacerbation Poses a threat to life or bodily function? How? (Chest pain, [place], [place], pneumonia, PE, COPD, DKA, ARF, appy, cholecystitis, CVA, Diverticulitis, Homicidal, Suicidal, threat to staff... and all critical care pts) @ -yes with chest pain Reevaluation #5: Differential Chest Pain: Stable Angina, Unstable Angina, STEMI, NSTEMI Aortic Dissection, Pneumothorax, Musculoskeletal, Esophageal Spasm GERD, Cholecystitis, Pancreatitis, Zoster, this is not meant to be an all-inclusive list. Medical Decision Making - Medical Decision Making 38 female to ER for evaluation of chest pain. Patient has persistent chest pain here in the emergency department that is improved. Patient has no cause of chest pain found can be discharged home - Lab Data Result diagrams: 07/22/23 03:15 07/22/23 03:15 Lab Results 07/22/23 07/22/23 07/22/23 Range/Units 03:15 03:15 03:15 WBC 7.4 (3.8-10.6) k/uL RBC 4.31 (3.80-5.40) m/uL Hgb 13.4 (11.4-16.0) gm/dL Hct 40.2 (34.0-46.0) % MCV 93.2 (80.0-100.0) fL MCH 31.0 (25.0-35.0) pg MCHC 33.3 (31.0-37.0) g/dL RDW 11.7 (11.5-15.5) % Plt Count 302 (150-450) k/uL MPV 8.3 Neutrophils % 66 % Lymphocytes % 23 % Monocytes % 6 % Eosinophils % 2 % Basophils % 1 % Neutrophils # 4.9 (1.3-7.7) k/uL Lymphocytes # 1.7 (1.0-4.8) k/uL Monocytes # 0.5 (0-1.0) k/uL Eosinophils # 0.2 (0-0.7) k/uL Basophils # 0.0 (0-0.2) k/uL PT 10.6 (10.0-12.5) sec INR 1.0 (<1.2) APTT 25.8 (22.0-30.0) sec D-Dimer <0.17 (<0.60) mg/L FEU Sodium 138 (137-145) mmol/L Potassium 3.9 (3.5-5.1) mmol/L Chloride 108 H (98-107) mmol/L Carbon Dioxide 22 (22-30) mmol/L Anion Gap 8 mmol/L BUN 8 (7-17) mg/dL Creatinine 0.64 (0.52-1.04) mg/dL Est GFR (CKD-EPI)AfAm >90 (>60 ml/min/1.73 sqM) Est GFR (CKD-EPI)NonAf >90 (>60 ml/min/1.73 sqM) Glucose 99 (74-99) mg/dL Calcium 9.0 (8.4-10.2) mg/dL Phosphorus 3.1 (2.5-4.5) mg/dL Magnesium 1.7 (1.6-2.3) mg/dL Total Bilirubin 0.6 (0.2-1.3) mg/dL AST 23 (14-36) U/L ALT 15 (4-34) U/L Alkaline Phosphatase 58 (38-126) U/L Troponin I (0.000-0.034) ng/mL NT-Pro-B Natriuret Pep <20 pg/mL Total Protein 6.6 (6.3-8.2) g/dL Albumin 3.8 (3.5-5.0) g/dL 07/22/23 Range/Units 03:15 WBC (3.8-10.6) k/uL RBC (3.80-5.40) m/uL Hgb (11.4-16.0) gm/dL Hct (34.0-46.0) % MCV (80.0-100.0) fL MCH (25.0-35.0) pg MCHC (31.0-37.0) g/dL RDW (11.5-15.5) % Plt Count (150-450) k/uL MPV Neutrophils % % Lymphocytes % % Monocytes % % Eosinophils % % Basophils % % Neutrophils # (1.3-7.7) k/uL Lymphocytes # (1.0-4.8) k/uL Monocytes # (0-1.0) k/uL Eosinophils # (0-0.7) k/uL Basophils # (0-0.2) k/uL PT (10.0-12.5) sec INR (<1.2) APTT (22.0-30.0) sec D-Dimer (<0.60) mg/L FEU Sodium (137-145) mmol/L Potassium (3.5-5.1) mmol/L Chloride (98-107) mmol/L Carbon Dioxide (22-30) mmol/L Anion Gap mmol/L BUN (7-17) mg/dL Creatinine (0.52-1.04) mg/dL Est GFR (CKD-EPI)AfAm (>60 ml/min/1.73 sqM) Est GFR (CKD-EPI)NonAf (>60 ml/min/1.73 sqM) Glucose (74-99) mg/dL Calcium (8.4-10.2) mg/dL Phosphorus (2.5-4.5) mg/dL Magnesium (1.6-2.3) mg/dL Total Bilirubin (0.2-1.3) mg/dL AST (14-36) U/L ALT (4-34) U/L Alkaline Phosphatase (38-126) U/L Troponin I <0.012 (0.000-0.034) ng/mL NT-Pro-B Natriuret Pep pg/mL Total Protein (6.3-8.2) g/dL Albumin (3.5-5.0) g/dL - EKG Data -: EKG Interpreted by Me (EKG is sinus 72 [place] 193 QRS 91 QTc 410) - Radiology Data Radiology results: report reviewed (Chest x-ray is negative for acute disease), image reviewed Disposition Clinical Impression: Chest pain Disposition: HOME SELF-CARE Condition: Good Instructions (If sedation given, give patient instructions): Chest Pain (ED) Is patient prescribed a controlled substance at d/c from ED?: No Referrals: None,Stated [Primary Care Provider] - 1-2 days Time of Disposition: 06:00
[2023-07-22 03:58] LABS: Basophils % (A) 1 %; Eosinophils # (A) 0.2 k/uL (0-0.7); Eosinophils % (A) 2 %; HCT 40.2 % (34.0-46.0); HGB 13.4 gm/dL (11.4-16.0); Lymphocytes # (A) 1.7 k/uL (1.0-4.8); Lymphocytes % (A) 23 %; MCHC 33.3 g/dL (31.0-37.0); MCV 93.2 fL (80.0-100.0); Mean Platelet Volume 8.3; Monocytes # (A) 0.5 k/uL (0-1.0); Monocytes % (A) 6 %; Neutrophils # (A) 4.9 k/uL (1.3-7.7); Neutrophils % (A) 66 %; Platelet Count 302 k/uL (150-450); RBC 4.31 m/uL (3.80-5.40); RDW 11.7 % (11.5-15.5); WBC 7.4 k/uL (3.8-10.6)
[2023-07-22] MEDS: SODIUM CHLORIDE 0.9% 1,000 ML IV STA (04:12)
[2023-07-22] MEDS: KETOROLAC 15 MG/ML 1 ML VIAL IVP STA (04:12)
[2023-07-22 04:13] LABS: ALT 15 U/L (4-34); AST 23 U/L (14-36); African American GFR (CKD) >90 (>60 ml/min/1.73 sqM); Albumin 3.8 g/dL (3.5-5.0); Alkaline Phosphatase 58 U/L (38-126); Anion Gap 8 mmol/L; Blood Urea Nitrogen 8 mg/dL (7-17); Carbon Dioxide 22 mmol/L (22-30); Chloride 108 mmol/L (98-107); Glucose 99 mg/dL (74-99); Magnesium 1.7 mg/dL (1.6-2.3); Non-African American GFR(CKD) >90 (>60 ml/min/1.73 sqM); Partial Thromboplastin Time 25.8 sec (22.0-30.0); Phosphorus 3.1 mg/dL (2.5-4.5); Potassium 3.9 mmol/L (3.5-5.1); Prothrombin Time 10.6 sec (10.0-12.5); Sodium 138 mmol/L (137-145); Total Bilirubin 0.6 mg/dL (0.2-1.3); Total Protein 6.6 g/dL (6.3-8.2)
[2023-07-22 04:21] LABS: NT-Pro-B-Type Natriuretic Pept <20 pg/mL
[2023-07-22] MEDS: MORPHINE SULFATE 4 MG/ML SYRINGE IV STA (06:19)
[2023-07-22] MEDS: traMADol 50 MG STARTER PACK 3 TAB BTL PO STA (06:46)
[2023-07-22] MEDS: IBUPROFEN 600 MG STARTER PACK 4 TAB BTL PO STA (06:47)
--- NOTE | 2023-07-22 07:30 | XR ---
EXAMINATION TYPE: XR chest 2V DATE OF EXAM: 07/22/2023 COMPARISON: 01/15/2020 HISTORY: 38-year-old female with weakness TECHNIQUE: PA and lateral views FINDINGS: The cardiomediastinal silhouette, aorta, and pulmonary vasculature are within normal limits. Lungs an d pleural spaces are clear. IMPRESSION: No acute cardiopulmonary process.
[2023-07-22 07:31] VITALS: BP 122/76; PULSE 81; RESP 20
== END 2023-07-22 07:10 | disposition home or self-care (01) ==
LOC: EC 02:52
DX: R07.89 Other chest pain (principal); F17.200 Nicotine dependence, unspecified, uncomplicated; Z88.8 Allergy status to other drugs, medicaments and biological substances
CPT/HCPCS: 36415; 93005; 85379; 83880; 80053; 83735; 84100; 84484; 85025; 85610; 85730; 71046; 99285; 96374; 96375; 96361 ×3; J2270; J1885